=== PATIENT | female | born 1990 | race Caucasian/White ===

== ENCOUNTER 2017-03-03 09:29 | Inpatient (IN) | payer OTHER ==
[~2017-03-03] VITALS: Ht 162.6 cm; Wt 67.1 kg
[2017-03-03] MEDS: Lactated Ringer's 1,000 ML IV PRN ×3 (09:54→17:44)
[2017-03-03] MEDS ORDERED: Magnesium Sulfate 20 Gm/500 mL Water Premix IV ONE (09:54)
[2017-03-03] MEDS ORDERED: Magnesium Sulfate 4 Gm/100 mL Water Premix IV ONE (09:55)
[2017-03-03] MEDS ORDERED: Penicillin G K 5,000,000 Units Inj ONE (10:02)
[2017-03-03] MEDS ORDERED: 0.9% Sodium Chloride 50 ML IV ONE (10:04)
[2017-03-03] MEDS ORDERED: Hemorrhage Kit, Post Partum XX ONE ×2 (10:15→18:05)
[2017-03-03] MEDS ORDERED: Carboprost 250 mCg/mL Inj IM PRN ×2 (10:15→18:05)
[2017-03-03] MEDS ORDERED: Oxytocin 30 Units/500 mL LR 30 UNITS in IV Premix 1 EACH IV PRN ×2 (10:15→18:05)
[2017-03-03] MEDS ORDERED: Oxytocin 10 Unit/mL Inj IM PRN ×2 (10:15→18:05)
[2017-03-03] MEDS ORDERED: Methylergonovine 0.2 mg/mL Inj IM PRN ×2 (10:15→18:05)
[2017-03-03] MEDS ORDERED: Magnesium Sulf 4 Gm/100 mL H2O 4 GM in IV Premix 1 EACH IV SCH (10:20)
[2017-03-03] MEDS ORDERED: Betameth Ace-Betam SodPhos 6 mg/mL 5 mL Inj IM ONE (10:30)
[2017-03-03] MEDS ORDERED: Penicillin G K 5,000,000 Units Inj IV ONE (10:35)
[2017-03-03 10:42] LABS: Mean Corpuscular Volume 92.9 fL (81-100)
[2017-03-03] MEDS: Magnesium Sulf 2 Gm/50mL Water 2 GM in IV Premix 1 EACH IV SCH ×2 (11:00→12:00)
[2017-03-03] MEDS ORDERED: Lactated Ringer's 500 ML IV ONE (13:53)
[2017-03-03] MEDS ORDERED: Lactated Ringer's 1,000 ML IV SCH ×2 (13:53→18:03)
--- NOTE | 2017-03-03 13:54 | PCM.HPANE ---
Patient Data Surgeon Admitting Provider:Meir Renner MD Attending Provider:Meir Renner MD Primary Care Physician:Sagar Other Provider:Trevor Mora Anesthesia Reason for Visit Pre Term Labor Check PRE TERM LABOR CHECK Ht/WT & BMI Body Mass Index Allergies Coded Allergies: No Known Allergies (Unverified , 03/03/17) History Smoking Status: Never Smoker Stop/Bang Risk Assessment Category Category 1A: Patient has history of documented sleep apnea, and HAS NOT received any narcotic, sedative or anesthesia administration during this stay. Category 1B: Patient has history of documented sleep apnea, and HAS received any narcotic , sedative or anesthesia administration during this stay Category 2: Patient has SUSPECTED Obstructive Sleep Apnea, and HAS received any narcotic , sedative or anesthesia administration during this stay. Category 3: Patient has SUSPECTED Obstructive Sleep Apnea and HAS NOT received narcotic, sedative or anesthesia administration during this stay. Category 4: Outpatient in Procedural Areas with known sleep apnea or who screen positive for High Risk via the STOP/BANG questionnaire. Meds/Labs/Diagnostics Admission Meds Current Medications Magnesium Sulfate (Magnesium Sulf 4 Gm/100 mL H2O) 4 gm STK-MED ONCE IV Last administered on 03/03/17 10:10; Start 03/03/17 at 09:55; Stop 03/03/17 at 09:58; Status DC Betamethasone Acet/Betameth SodPhos (Celestone Soluspan Inj) 12 mg ONCE ONCE IM Last administered on 03/03/17 10:06; Start 03/03/17 at 10:30; Stop 03/03/17 at 10:31; Status DC Penicillin G Potassium (Pfizerpen Inj) 1,000,000 units OT ONCE IV Last administered on 03/03/17 10:38; Start 03/03/17 at 10:35; Stop 03/03/17 at 10:36; Status DC Labs Test 03/03/17 10:00 White Blood Count 14.0th/mm3 (3.8-10.1) Red Blood Count 4.06mil/mm3 (3.90-5.20) Hemoglobin 13.4g/dL (12.0-15.6) Hematocrit 37.7% (35.0-46.0) Mean Corpuscular Volume 92.9fL (81-100) Mean Corpuscular Hemoglobin 33.0pg (27.0-35.0) Mean Corpuscular Hemoglobin Concent 35.5% (32.0-37.0) Red Cell Distribution Width 12.9% (12.3-15.4) Platelet Count 190bil/L (150-400) Plan Impression Patient chart reviewed, patient interviewed and anesthestic plan with risks, benefits, and alternatives discussed, and informed consent obtained. Khalif Alexander MD Mar 03, 2017 13:54
[2017-03-03] MEDS ORDERED: fentaNYL 2 mCg/mL-Bupiv 0.125% 100 ML EPIDURAL SCH (13:55)
[2017-03-03] MEDS ORDERED: Atropine 1 mg/10 mL (Code) Syringe IVPUSH PRN (13:55)
[2017-03-03] MEDS ORDERED: EPHEDrine Sulfate 50 mg/mL Inj IVPUSH PRN (13:55)
[2017-03-03] MEDS ORDERED: Ondansetron 2 mg/mL 2 mL Inj IVPUSH PRN (13:55)
[2017-03-03] MEDS ORDERED: Penicillin G K 5,000,000 Units Inj IV SCH (14:00)
--- NOTE | 2017-03-03 14:03 | HP ---
[address] [address] HISTORY AND PHYSICAL PATIENT: LINDA NEIL : 1990 MR#: [id number] ADMIT: 03/03/2017 JOB ID: [id number] DATE: 03/03/2017 ADMISSION DIAGNOSIS: labor at 34 weeks. HISTORY OF PRESENT ILLNESS: The patient is 26-year-old, 1, para 0, at 34 weeks' gestational age by last menstrual period, confirmed by 9 week ultrasound, who started to have severe contractions this morning. Came into triage with cervical exam of 4 cm by admitting nurse. One hour and 20 minutes later, my exam showed cervix of 7 cm dilated. Patient admitted for active labor. Received one dose of magnesium sulfate 4 g bolus, as initially her final due date was thought to be April 15 by 9 week ultrasound, but after reviewing all her LMP-based JESSICA and ultrasound-based JESSICA, the final due date was confirmed to be April 14, 2017, and magnesium sulfate was stopped after the 4 g bolus. The patient denied any leakage of fluid. Denied any bleeding. Reports movements. PAST OBSTETRICAL HISTORY: Primigravida. PAST GYNECOLOGIC HISTORY: No history of STDs. No history of abnormal Pap. PAST MEDICAL HISTORY: Insignificant. PAST SURGICAL HISTORY: None. ALLERGIES: No known drug allergies. MEDICATIONS: vitamins. SOCIAL HISTORY: Denied any alcohol consumption. Denied any drugs of abuse. Denied any cigarette smoking. LABS: A-positive, antibody negative, varicella immune, rubella immune, serology nonreactive, hepatitis B surface antigen negative. HIV nonreactive. GC Chlamydia cultures negative. H and H on admission is 13.4 and 37.7. Platelets are 190. White blood count 14. PHYSICAL EXAMINATION: Patient is alert, oriented x3. Vital signs are 111/71 for blood pressure. Respirations are 18. Pulse is 75, temperature 36.1 degrees centigrade. Pulse ox 95% on room air. Heart is regular rate and rhythm. Positive S1, S2. Lungs clear to auscultation bilaterally. Abdomen: Gravid uterus, nontender. Positive bowel sounds. Perineum: No active bleeding. Lower extremities: No calf tenderness appreciated bilaterally. Cervical exam is 7 cm dilated cervix, 90% effaced, -3 station with bulging membranes. Bedside ultrasound confirmed vertex presentation. heart tracing is showing baseline of 120 beats per minute, positive accelerations, no decelerations, moderate variability, category 1 heart tracing. ASSESSMENT AND PLAN: Patient is a 26-year-old, 1, para 0, at 34 weeks by last menstrual period, confirmed by 9 week ultrasound, admitted for labor. Received first dose of betamethasone at 10:06. Penicillin started for GBS unknown status. Expectant management for labor. Discussed intrapartum analgesia options. Patient considering her options, undecided yet. The rosin barrel filler notified. All the above discussed in detail the patient who agreed to the plan.
[2017-03-03] MEDS ORDERED: Penicillin G K 3,000,000 Units/50 mL D5W Premix IV ONE (14:07)
[2017-03-03] MEDS ORDERED: Mineral Oil-Heavy 30 mL UDC ONE (16:42)
[2017-03-03] MEDS ORDERED: Penicillin G K Inj 3,000,000 UNITS in IV Premix 1 EACH IV SCH (18:00)
[2017-03-03] MEDS ORDERED: oxyCODONE-Acetamin 5-325 mg Tablet PO PRN (18:05)
[2017-03-03] MEDS ORDERED: LANOlin HPA 7 Gm Ointment TOPICAL PRN (18:05)
[2017-03-03] MEDS ORDERED: Witch Hazel-Glycerin Pads TOPICAL PRN (18:05)
--- NOTE | 2017-03-03 19:01 | OP ---
[address] [address] OPERATIVE REPORT PATIENT: LINDA NEIL : 1990 MR#: [id number] ADMIT: 03/03/2017 JOB ID: [id number] DATE OF SURGERY: 03/03/2017 PREOPERATIVE DIAGNOSIS(ES): A 26-year-old, 1, para 0, at 34 weeks gestational age by last menstrual period, confirmed by 9 week ultrasound, admitted for labor, progressed to 8 cm dilated and remained at 8 cm for 4 hours. Artificial rupture of membranes revealed meconium-stained fluid, and it was enough to progress the patient to fully dilated, +3 station. POSTOPERATIVE DIAGNOSIS(ES): A 26-year-old, 1, para 0, at 34 weeks gestational age by last menstrual period, confirmed by 9 week ultrasound, admitted for labor, progressed to 8 cm dilated and remained at 8 cm for 4 hours. Artificial rupture of membranes revealed meconium-stained fluid, and it was enough to progress the patient to fully dilated, +3 station. PROCEDURE: Spontaneous vaginal delivery. SURGEON: Meir Renner MD. ANESTHESIA: Epidural. ESTIMATED BLOOD LOSS: 200 cc. COMPLICATIONS: None. FINDINGS: Single viable male infant with Apgars 6/8, weight of 2406 g. PROCEDURE IN DETAIL: The patient started to push efficiently. Infant had delivered in left occiput anterior position followed by the shoulders and rest of the body. Delayed cord clamping allowed for 60 seconds. The infant placed over mom's chest. Cord clamped and cut. Placenta followed spontaneously. Upon inspection, it was noted to be intact with a 3-vessel cord, marginally inserted. Examination after the placental delivery confirmed firm uterine fundus with no blood clots retrieved. No active bleeding. Inspection of the perineum revealed bilateral labial lacerations and a second-degree vaginal laceration at 6 o'clock. The labial incisions were repaired with continuous suture of 3-0 Vicryl. The vaginal laceration was repaired with a continuous suture locked fashion of 2-0 Vicryl. Good hemostasis assured. Patient tolerated the repair well. All sponge, needle, and instrument counts correct x2. Mom recovering in stable condition in labor and delivery room. The baby moved to nursery for evaluation. Please note the patient received one dose of betamethasone and two doses of penicillin for GBS unknown status.
[2017-03-03] MEDS: Benzocaine (Dermoplast) 20% 60 Gm Spray TOPICAL PRN (19:45)
[2017-03-04 07:09] LABS: Mean Corpuscular Volume 98.2 fL (81-100)
--- NOTE | 2017-03-04 07:44 | PCM.DIOB ---
Obstetrical Disch Instruction Date of Service: Mar 04, 2017 Dates of Hospitalization Date of Hospital Admission Mar 03, 2017 at 09:46 Providers Admitting Physician: Meir Renner MD Primary Care Physician: Nopcp Attending Physician: Meir Renner MD Discharge Diagnosis Discharge Diagnosis vaginal delivery Problems: Diet Discharge Diet: No restrictions Activity Discharge Activity-General: Pelvic Rest for 6 weeks, Try not to overdue, Be up and about, Balance rest and activity, No lifting >15 pounds for 2 weeks Dressing and Incisional Care Hygiene: May shower, NO bathtub, hot tub or whirlpool Additional Instructions Discharge Instructions You eager to go to see your baby who's transferred out for delivery. It' s earlier than 24 hrs after delivery. There's still higher risk of heavy bleeding, preeclampsia, infection than later. I discussed with you about signs of heavy bleeding, infection, and preeclampsia. You should go to ER immediately if those happen. You will need call office or go to ER, even those happened later. Those include : heavier than usual vaginal bleeding, severe abdominal pain, foul smelling discharge, fever more than 100.4 or short of breath. Please follow up in office 6 weeks after delivery. Follow Up Plan Follow Up Plan 6 weeks Follow-up Provider (F9): Edmund DIRECTOR OF APPLICATION DEVELOPMENT ADEBAYO SAUCEDO Follow-up appointment: Weeks (6) Call your provider for: Fever or Chills, Shortness of breath, Heavy vaginal bleeding, Epigastric pain, Vaginal discomfort Pam Maier MD Mar 04, 2017 07:44
[2017-03-04] MEDS ORDERED: DOCU-41 PO (07:45)
[2017-03-04] MEDS ORDERED: IBUP-1827 PO (07:45)
[2017-03-04 07:48] VITALS: BP 101/68; PULSE 67; RESP 18
[2017-03-04] MEDS: Benzocaine (Dermoplast) 20% 60 Gm Spray TOPICAL PRN (07:59)
[2017-03-04] MEDS ORDERED: Ascorbic Acid 500 mg Tablet PO SCH (08:00)
--- NOTE | 2017-03-05 00:21 | DIS ---
[address] [address] DISCHARGE SUMMARY PATIENT: LINDA NEIL : 1990 MR#: [id number] ADMIT: 03/03/2017 JOB ID: [id number] DIS: 03/04/2017 HISTORY OF PRESENT ILLNESS: A 26-year-old female. She is 1, para 1, now status post delivery at 34 weeks. The delivery itself was not complicated. Unfortunately, her baby was transferred to [facility] after delivery. Patient doing well after delivery. She tolerated her diet, ambulating well, voiding well. Pain is well controlled. Her lochia was moderate to minimal. PHYSICAL EXAMINATION: She is afebrile. Her vitals are all in normal range. Cardiac: RR. No murmur. Pulmonary: Bilaterally clear. Abdomen: Soft. Uterus: Well contracted, nontender. Extremities: Nontender. Lochia moderate to minimal. ASSESSMENT AND PLAN: A 26-year-old female, 1, para 1, after delivery. Since the patient's baby was transferred outside down to [facility] patient is eager to go to visit her baby. Patient understood that there is increased risk within 24 hours after delivery for bleeding, hypertension, preeclampsia, and chance of infection. I discussed with patient about signs of above situations. She understood and she promised she will go to the emergency department for evaluation if any signs of above problems. She is instructed to call the office for appointment six weeks after delivery. She is instructed if there is heavy vaginal bleeding, severe abdominal pain, foul-smelling discharge, fever of 100.4, or shortness of breath, she needs to call office or go to the emergency department for evaluation. Motrin and Colace was prescribed.
--- NOTE | 2017-03-06 13:45 | PATH ---
SURGICAL PATHOLOGY Attending Physician:Meir Renner MD CASE STATUS: Signed Out PATIENT NAME: LINDA NEIL PID: [id number] : 1990 DATE COLLECTED:03/03/2017 00:00 SPECIMEN: Placenta CLINICAL HISTORY: 1). PLACENTA FOR INDUCED DELIVERY FINAL DIAGNOSIS: 1.PLACENTA WITH UMBILICAL CORD AND MEMBRANES: 1. PLACENTA: 438 GRAMS, WHICH IS APPROXIMATELY THE 75TH PERCENTILE FOR 34 WEEKS GESTATION. GROSS MECONIUM STAINING. NEGATIVE FOR INFARCTS, SIGNIFICANT VASCULAR LESIONS, AND SIGNIFICANT INFLAMMATION. 2. UMBILICAL CORD: 6.5 CM IN LENGTH WITH THREE NORMAL BLOOD VESSELS. NEGATIVE FOR SIGNIFICANT INFLAMMATION. CORD IS ATTACHED 3.8 CM FROM THE PLACENTAL EDGE. 3. MEMBRANES: RUPTURED 2.5 CM FROM THE FREE PLACENTAL EDGE. NEGATIVE FOR SIGNIFICANT INFLAMMATION. ICD10 O77.0 GROSS DESCRIPTION: The specimen is received in formalin, labeled with the patient's name and consists of an intact placenta and includes placental disc (438 g, 19.8 x 19.5 X 2.2 cm), umbilical cord (length-6.5 cm, diameter-1.5 x 1.1 cm) and membranes. The membranes are ruptured 2.5 cm from the free edge of the placenta and are translucent. The umbilical cord is attached 3.8 cm from the edge of the placenta and contains 3 vessels. The surface is smooth and shiny with evidence of meconium identified. The maternal surface is dark maroon with normal cotyledon formation. The placental disc is spongy with no hematomas, infarcts, nodules, masses, or lesions. Section code: (A) edge of placenta with membranes, umbilical cord; (B-D) placenta, 3 full thickness sections. 03/05/17 MICRO DESCRIPTION: See diagnosis. ICD-9 CODES: CPT CODES: 1: 37326 Electronically Signed Out Salty Lester MD [facility] Pathology [facility] [address], [place] [address] Technical component performed at [facility], [facility] [address], [place], [address]
== END 2017-03-04 08:05 | disposition home or self-care (01) | DRG 775 ==
LOC: FBCO 09:29 → FBC 09:46
PROVIDERS: ADMIT Obstetrics & Gynecology; ATTEND Obstetrics & Gynecology
PROC: 10E0XZZ Delivery of Products of Conception, External Approach (ICD-10-PCS; principal; 2017-03-03)
PROC: 0KQM0ZZ Repair Perineum Muscle, Open Approach (ICD-10-PCS; 2017-03-03)
PROC: 10907ZC Drainage of Amniotic Fluid, Therapeutic from Products of Conception, Via Natural or Artificial Opening (ICD-10-PCS; 2017-03-03)
DX: O60.14X0 Preterm labor third trimester with preterm delivery third trimester, not applicable or unspecified (principal); Z3A.34 34 weeks gestation of pregnancy; Z37.0 Single live birth; O77.0 Labor and delivery complicated by meconium in amniotic fluid; O70.1 Second degree perineal laceration during delivery